=== PATIENT | female | born 1975 | race Caucasian/White ===

== ENCOUNTER → 2017-03-05 | Outpatient (CLI) | payer BC ==
[~2017-03-05] MED LIST: ASCO1CHW7 CHEW; BUPR150T3 PO; CALC-281; CYCL1TAB29 PO; GABA300C5 PO; HYDR-3534 PO; KETO10 PO; LACTCAP8 PO; MULT-65 PO; MULT1TAB84 PO; PERC5TAB12 PO; ZOFR8TAB4 SL
--- NOTE | 2017-03-06 16:49 | EKG ---
Date Performed: 03/05/2017 Time Performed: 14:04:11 PTAGE: 41 years EKG: Sinus rhythm LOW QRS VOLTAGE IN PRECORDIAL LEADS INCOMPLETE RIGHT BUNDLE BRANCH BLOCK BORDERLINE ECG PREVIOUS TRACING : 03/04/2009 13.16 Compared to previous tracing, the patient now has RSR'. Cli nical correlation suggested. DOCTOR: Rupali Wang Interpretating Date/Time 03/06/2017 16:47:00
== END ==
LOC: CPRE 13:40
PROVIDERS: ATTEND Obstetrics & Gynecology
DX: Z01.810 Encounter for preprocedural cardiovascular examination (principal); N85.4 Malposition of uterus; R10.2 Pelvic and perineal pain; N94.19 Other specified dyspareunia; I45.10 Unspecified right bundle-branch block
CPT/HCPCS: 93005

== ENCOUNTER 2017-03-07 10:58 | Observation (INO) | payer BC ==
--- NOTE | 2017-03-06 09:52 | MH ---
cc: ANEUDY MONTESINOS DATE OF ADMISSION 03/07/2017 DATE OF 1975 ADMISSION DIAGNOSIS Pelvic pain with symptomatic uterine retroversion. HISTORY OF PRESENT ILLNESS This is a 41-year-old white female para 2-0-0-2 who returned for annual visit on 01/22/2017 with pelvic pain related to uterine retroversion. Her Pap smear was normal. Her laboratory studies were normal and pelvic ultrasound showed normal appearing ovaries and uterus. She is now admitted for laparoscopy, probable LASH procedure, possible FRANKIE with ovarian sparing if normal. PAST MEDICAL HISTORY 1. Previous surgery in 1983 stat for a breech. 2. In 1985, LEEP procedure for MONISHA 2. 3. In 2000, breast augmentation. 4. In 2014, abdominal plasty MEDICATIONS [facility] ALLERGIES None TRANSFUSIONS None OBSTETRICAL HISTORY with in 1983, spontaneous vagina delivery 1999. SOCIAL HISTORY She is . She and are business owners. Alcohol occasional, tobacco none, drugs none. PHYSICAL EXAM This is a well-nourished well-developed white female. VITAL SIGNS: Stable. HEENT: Exam is normal. CHEST: Clear. HEART: Regular rate. BREASTS: Symmetrical. ABDOMEN: Benign. PELVIC: The vagina is normal. Cervix normal. Uterus is retroverted, globular, tender. Adnexa nonpalpable. ASSESSMENT As above. PLAN She is now admitted for laparoscopy with planned LASH procedure, possible FRANKIE, ovarian sparing if normal. While in the office, I explained the procedures, the risks, benefits and complications and patient would like to proceed. MD ROSSANA Willams/BROOK /9:44 AM /9:51 AM
[~2017-03-07] VITALS: Ht 162.6 cm; Wt 65.3 kg
[~2017-03-07 10:58] MED LIST changes: +BUPIVACAINE LIPOSOME PF 1.3% 20 ML VIAL ONE; -MULT1TAB84 PO; -PERC5TAB12 PO; -ZOFR8TAB4 SL
[2017-03-07 11:26] VITALS: BP 115/73; PULSE 91; RESP 16; TEMP 97.9; O2SAT 98
[2017-03-07] MEDS ORDERED: LACTATED RINGER'S 1000 ML IV PRN (11:30)
[2017-03-07] MEDS ORDERED: ACETAMINOPHEN 1000 MG/100 ML VIAL IV SCH (11:30)
[2017-03-07] MEDS ORDERED: POVIDONE IODINE 5% (ANTISEPSIS KIT) 4 APPLICATIONS EACH NARE PRN (11:30)
[2017-03-07] MEDS ORDERED: INSULIN HUMAN REGULAR 1,000 UNITS/10 ML VIAL SQ PRN (11:30)
[2017-03-07] MEDS ORDERED: ceFAZolin 2 GM PREMIX 50 ML IV SCH (11:30)
[2017-03-07] MEDS ORDERED: METOPROLOL TARTRATE 25 MG TAB PO PRN (11:30)
[2017-03-07] MEDS ORDERED: SODIUM CHLORID 0.9% 500 ML IV PRN (11:30)
[2017-03-07] MEDS ORDERED: CHLORHEXIDINE GLUCONATE 2 % 1 PACK (2 CLOTHS) TOPICAL PRN (11:30)
[2017-03-07] MEDS ORDERED: PHENYLEPH/NS 1000 MCG/10 ML SYR IV ONE (12:00)
[2017-03-07] MEDS ORDERED: NEOSTIGMINE 3 MG/3 ML SYR IV ONE (12:00)
[2017-03-07] MEDS ORDERED: PROPOFOL 200 MG/20 ML AMP IV ONE (12:00)
[2017-03-07] MEDS ORDERED: ONDANSETRON HCL 4 MG/2 ML VIAL IV PUSH ONE (12:00)
[2017-03-07] MEDS ORDERED: KETOROLAC TROMETHAMINE 60 MG/2 ML (IM) VIAL IM ONE (12:00)
[2017-03-07] MEDS ORDERED: HYDROmorphone HCL PF 1 MG/ML VIAL IV PRN (14:15)
[2017-03-07] MEDS ORDERED: ONDANSETRON ODT 4 MG TAB PO PRN (14:15)
[2017-03-07] MEDS ORDERED: hydrOXYzine PAMOATE 25 MG CAP PO PRN (14:15)
[2017-03-07] MEDS ORDERED: ZOLPIDEM TARTRATE 5 MG TAB PO PRN (14:15)
[2017-03-07] MEDS ORDERED: ONDANSETRON HCL 4 MG/2 ML VIAL IV PRN (14:15)
[2017-03-07] MEDS ORDERED: diphenhydrAMINE HCL 25 MG CAP PO PRN (14:15)
[2017-03-07] MEDS ORDERED: SODIUM CHLORIDE 0.9% FLUSH 5 ML FLUSH FLUSH PRN (14:15)
[2017-03-07] MEDS ORDERED: PROMETHAZINE HCL 25 MG TAB PO PRN (14:15)
[2017-03-07] MEDS ORDERED: *MEPERIDINE 25 MG INJ VIAL PERIprocedural Use ONLY ONE (14:36)
[2017-03-07] MEDS ORDERED: fentaNYL CITRATE 250 MCG/5 ML AMP ONE (14:40)
[2017-03-07] MEDS ORDERED: KETOROLAC TROMETHAMINE 30 MG/ML (IVP) VIAL IVP SCH ×2 (15:00→15:45)
[2017-03-07] MEDS: D5-1/2 NS + KCL 20 MEQ INJ 1,000 ML IV SCH ×2 (15:00→20:09)
[2017-03-07] MEDS ORDERED: *morphine SULFATE 8 MG/ML PERIprocedure ONLY ONE (15:23)
[2017-03-07 16:50] LABS: HEMATOCRIT 40.2 % (35.0-46.0); REVIEW FLAG FINAL
[2017-03-07] MEDS: CYCLOBENZAPRINE HCL 10 MG TAB PO SCH (18:00)
[2017-03-07] MEDS: GABAPENTIN 300 MG CAP PO SCH (18:46)
[2017-03-07 20:00] VITALS: BP 96/58; PULSE 90; RESP 17; TEMP 96.7; O2SAT 96
[2017-03-07] MEDS: KETOROLAC TROMETHAMINE 30 MG/ML (IVP) VIAL IVP SCH (20:07)
[2017-03-07] MEDS: ACETAMINOPHEN 1000 MG/100 ML VIAL IV SCH (20:09)
[2017-03-07] MEDS: SODIUM CHLORIDE 0.9% FLUSH 5 ML FLUSH FLUSH SCH (20:10)
[2017-03-07] MEDS: DOCUSATE SODIUM 100 MG CAP PO SCH (21:40)
[2017-03-08] VITALS: BP 95/56; PULSE 90; RESP 17; TEMP 97.5; O2SAT 97
[2017-03-08] MEDS: KETOROLAC TROMETHAMINE 30 MG/ML (IVP) VIAL IVP SCH ×2 (01:20→09:24)
[2017-03-08] MEDS: ACETAMINOPHEN 1000 MG/100 ML VIAL IV SCH ×2 (05:30→12:34)
[2017-03-08] MEDS: D5-1/2 NS + KCL 20 MEQ INJ 1,000 ML IV SCH (05:30)
[2017-03-08 05:42] VITALS: BP 96/53; PULSE 91; RESP 17; TEMP 98.2; O2SAT 97
[2017-03-08 07:53] LABS: AUTOMATED NEUTROPHIL # 6.6 TH/MM3 (1.8-7.7); BASOPHIL % 0.1 % (0.0-2.0); EOSINOPHIL % 0.5 % (0.0-4.0); HEMATOCRIT 36.4 % (35.0-46.0); HEMO FLAGS DIFF FINAL; LYMPH % 17.5 % (9.0-44.0); LYMPHOCYTE # 1.6 TH/MM3 (1.0-4.8); MEAN CELL VOLUME 93.9 FL (80.0-100.0); MEAN CORPUSCULAR HEMOGLOBIN 31.7 PG (27.0-34.0); MEAN CORPUSCULAR HGB CONC 33.8 % (32.0-36.0); MONO % 11.4 % (0.0-8.0); NEUT % 70.5 % (16.0-70.0); PLATELET COUNT 201 TH/MM3 (150-450); RED BLOOD COUNT 3.88 MIL/MM3 (4.00-5.30); RED CELL DISTRIBUTION WIDTH 13.3 % (11.6-17.2); WHITE BLOOD COUNT 9.4 TH/MM3 (4.0-11.0)
[2017-03-08 08:19] LABS: BICARBONATE 26.7 MEQ/L (21.0-32.0); POTASSIUM 3.7 MEQ/L (3.5-5.1)
[2017-03-08 08:21] VITALS: BP 90/50; PULSE 90; RESP 16; TEMP 98.2; O2SAT 96
[2017-03-08] MEDS ORDERED: buPROPion HCL 150 MG SUSTAINED RELEASE TAB PO SCH (09:00)
[2017-03-08 09:21] VITALS: BP 93/58; PULSE 77
[2017-03-08] MEDS: GABAPENTIN 300 MG CAP PO SCH ×2 (09:24→12:34)
[2017-03-08] MEDS: CYCLOBENZAPRINE HCL 10 MG TAB PO SCH ×2 (09:24→12:36)
[2017-03-08] MEDS: DOCUSATE SODIUM 100 MG CAP PO SCH (09:24)
[2017-03-08] MEDS: SODIUM CHLORIDE 0.9% FLUSH 5 ML FLUSH FLUSH SCH (09:25)
[2017-03-08] MEDS ORDERED: INFLUENZA VIRUS VACCINE (QUADRIVALENT) 0.5 ML SYR IM ONE (10:00)
--- NOTE | 2017-03-08 12:24 | MP ---
cc: ANEUDY MONTESINOS DATE OF SURGERY 03/07/2017 PREOPERATIVE DIAGNOSIS Pelvic pain with symptomatic uterine retroversion. POSTOPERATIVE DIAGNOSIS Pelvic pain with symptomatic uterine retroversion with probable adenomyosis. PROCEDURE Laparoscopy, LASH and bilateral salpingectomy. ANESTHESIA General ET SURGEON Aneudy Montesinos MD SKIP OPERATOR Yamila Burton ESTIMATED BLOOD LOSS About 50 cc FLUIDS One liter crystalloid. OBJECTIVE FINDINGS Following induction of adequate general endotracheal anesthesia, the patient was prepped and draped supine on the operating table in the dorsolithotomy position in the usual sterile fashion with the bladder being drained via Perez catheterization. The abdomen was opened through a 3 cm curving supraumbilical incision using a knife to cutdown skin to the fascia. The fascia opened transversely, muscles split in the midline and the peritoneum opened sharply. The mini GelPort was placed, laparoscope inserted and a five port was placed in the lower quadrant and an enterocele port in the right lower quadrant. The uterus was about 12 weeks' size, severely retroverted, globular fundus, normal tubes, normal ovaries, normal cul-de-sacs, normal liver edge. Working first on the left, Harmonic scalpel was used take the left mesosalpinx, left round ligament, left broad ligament, left-side of the bladder flap and left uterine vessels, same on the right. The harmonic scalpel was now used to amputate the fundus from the cervix and the fundus and tubes placed in a pouch and extracted through the GelPort intact. Irrigation was now performed. No bleeding was evident in the Trendelenburg position low-pressure test. The operative site was covered with Evicel and the GelPort then removed after inspecting ureters for good peristalsis. The GelPort site was closed with running 2-0 Vicryl for the peritoneum, the fascia with a running locking stitch of 0 Vicryl corner to midline and tied, the subcu with a running 3-0 Vicryl and skin with a running 3-0 Monocryl subcuticular. The scope was now reinserted through the lower port sites to inspect the GelPort sites are well closed. No bleeding. Scope was now removed, gas allowed to escape and the small ports closed with 3-0 Monocryl. Dermabond applied. All counts correct and the patient was awakened and taken to the recovery room in good condition. MD ROSSANA Willams/BROOK /2:26 PM /12:19 PM
[2017-03-08 12:40] VITALS: BP 97/62; PULSE 81; RESP 16; TEMP 98.2; O2SAT 96
[2017-03-08] MEDS ORDERED: PERC5TAB12 PO (13:15)
[2017-03-08] MEDS ORDERED: ZOFR8TAB4 SL (13:16)
== END 2017-03-08 13:54 | disposition home or self-care (01) ==
LOC: HSDC 10:58 → HSDI 14:14 → HOCA 15:57
PROVIDERS: ADMIT Obstetrics & Gynecology; ATTEND Obstetrics & Gynecology
DX: N80.0 Endometriosis of uterus (principal); N83.8 Other noninflammatory disorders of ovary, fallopian tube and broad ligament; F17.200 Nicotine dependence, unspecified, uncomplicated; Z87.410 Personal history of cervical dysplasia
CPT/HCPCS: 58542; 80048; 85014; 85018; 85025; 86850; 86900; 86901; 88307; 93005; 94150; C9290; G0378; J0131; J0690; J1885; J2175; J2270; J2370; J2405; J2710; J3010; J3480; J7120